=== PATIENT | male | born 1995 | race Caucasian/White ===

== ENCOUNTER 2021-07-03 10:13 | Emergency (ER) | payer BC, SELFPAY ==
[2021-07-03 10:34] VITALS: BP 147/88; PULSE 96; RESP 16; TEMP 37.3; O2SAT 97
--- NOTE | 2021-07-03 10:45 | PC.NURSE ---
Pt aware of need for stool specimen.
--- NOTE | 2021-07-03 10:48 | ED.ABDPAIN ---
HPI - Abdominal Pain General Chief Complaint: Abdominal Pain Stated Complaint: abd pain,chills/diarrhea Time Seen by Provider: 07/03/21 10:49 Source: patient Mode of arrival: ambulatory Limitations: no limitations History of Present Illness HPI narrative: [age] of man who has previously well comes in today complaining of diarrhea. 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 He states he has had some mild fever, fatigue, abdominal cramping, but no nausea, vomiting, chest pain, difficulty breathing, rhinorrhea, blood in his stools or rash. MD elicited complaint: abdominal pain Onset (ago): day(s) (1) Pain Consistency: intermittent Location: diffuse Severity: moderate Quality: cramping Radiation: none Migration to: no migration Exacerbating factors: nothing Relieving factors: nothing Context: confirms other (Works at a dairy farm) Associated symptoms: fever Review of Systems Review of Systems: All systems reviewed & are unremarkable except as noted in HPI and below Constitutional: Constitutional: Denies chills, Reports fatigue, Reports fever(s) and Denies weakness Eyes: Eyes: Denies change in vision and Denies photophobia ENT: Denies nasal congestion and Denies sore throat Cardiovascular: Cardiovascular: Denies chest pain and Denies radiating jaw, neck or arm pain Respiratory: Respiratory: Denies cough and Denies dyspnea Gastrointestinal: Gastrointestinal: Reports abdominal pain, Reports diarrhea, Denies nausea and Denies vomiting Musculoskeletal: Musculoskeletal: Denies back pain, Denies arthralgias and Denies joint swelling Integumentary/Breasts: Skin/Breast: Denies pruritus, Denies erythema and Denies rash Neurologic: Denies vertigo, Denies dizziness and Denies syncope Endocrine: Endocrine: Denies polydipsia and Denies polyuria Hematologic/Lymphatic: Hematologic/Lymphatic: Denies easy bleeding and Denies easy bruising Allergic/Immunologic: Allergic/Immunologic: Denies lip swelling and Denies throat swelling [facility] Social History Social History (Updated 07/03/21 @ 11:00 by Efra Bauman MD) Smoking status: Current every day smoker Alcohol intake: current Substance use: never Living arrangements: with family Additional occupation/education comments: Works at a dairy farm Exam Const: General: healthy appearing, no acute distress and alert Orientation/consciousness: patient oriented x3 Limitations: no limitations HENMT: Head: normal to inspection Face and sinus: normal facial exam Mouth: Yes moist mucous membranes Throat: posterior oropharynx normal Resp: Effort & Inspection: normal respiratory effort and not labored Auscultation: clear to auscultation bilaterally, no rales, no rhonchi and no wheezes Cardio: Rate: regular rate Rhythm: regular rhythm Heart sounds: no murmurs GI: GI Palp: Yes Soft to palpation, No Tenderness to palpation present (GI) and No Guarding due to palpation present (GI) Skin: General skin exam: normal color, no jaundice and no pallor Rashes: no rashes Neuro: General: patient oriented x3, moves all extremities, no focal motor deficits and CN's II-XI intact bilaterally Speech: normal speech Gait exam (Neuro): Normal gait present Extrem: General: normal to inspection and no clubbing, cyanosis or edema Psych: Appearance: grossly normal and well kempt Mental Status: mental status grossly normal Affect: normal affect Attitude: cooperative Thought content: Yes Normal thought content present Course Vital Signs Vital signs: Vital Signs Temperature 37.3 C 07/03/21 10:34 Pulse Rate 96 07/03/21 10:34 Respiratory Rate 16 07/03/21 10:34 Blood Pressure 147/88 H 07/03/21 10:34 Pulse Oximetry 97 07/03/21 10:34 Temperature 37.3 C 07/03/21 10:34 Pulse Rate 96 07/03/21 10:34 Respiratory Rate 16 07/03/21 10:34 Blood Pressure 147/88 H 07/03/21 10:34 Pulse Oximetry 97 07/03/21 10:34
[2021-07-03 11:20] LABS: SARS-CoV-2 RNA PCR Negative (Negative)
== END 2021-07-03 11:39 | disposition home or self-care (01) ==
PROVIDERS: Emergency Provider Emergency Medicine
DX: K52.9 Noninfective gastroenteritis and colitis, unspecified (principal); Z20.822 Contact with and (suspected) exposure to COVID-19
CPT/HCPCS: 99282; 99283; C9803; U0003; U0005

== ENCOUNTER 2021-07-04 11:36 | Outpatient (CLI) | payer BC, SELFPAY | END 2021-07-04 11:37 | disposition home or self-care (01) | LOC: CHSLAB 11:38 | PROVIDERS: Visit Provider Emergency Medicine | DX: K52.9 Noninfective gastroenteritis and colitis, unspecified (principal) | CPT/HCPCS: 87045; 87177; 87209; 87269; 87272; 87427 ==